=== PATIENT | male | born 1960 | race Caucasian/White ===

== ENCOUNTER 2022-11-23 09:57 | Outpatient (CLI) | payer OTHER, SELFPAY | END 2022-11-23 09:58 | disposition home or self-care (01) | LOC: ANHAUDIO 09:58 | PROVIDERS: PCP Family Medicine Adolescent Medicine; Visit Provider Otolaryngology | DX: H71.92 Unspecified cholesteatoma, left ear (principal); H90.3 Sensorineural hearing loss, bilateral; H65.491 Other chronic nonsuppurative otitis media, right ear; H90.6 Mixed conductive and sensorineural hearing loss, bilateral | CPT/HCPCS: 92557; 92567 ==